=== PATIENT | female | born 1985 | race Hispanic/Latino ===

== ENCOUNTER 2019-01-29 02:38 | Inpatient (IN) ==
[2019-01-29] MEDS ORDERED: NS 1,000 ML IV ONE ×2 (03:15→05:00)
[2019-01-29] MEDS ORDERED: ZOFRAN IV ONE (03:15)
[2019-01-29] MEDS ORDERED: MORPHINE IV ONE (03:15)
--- NOTE | 2019-01-29 03:19 | PROVIDER DOCUMENTATION ---
HPI-General Adult - General Chief Complaint: Abdominal Pain Stated Complaint: N/V/D Time Seen by Provider: 01/29/19 03:13 Source: patient, family Allergies/Adverse Reactions: Patient Allergies Allergy/AdvReac Type Severity Reaction Status Date / Time No Known Allergies Allergy Verified 11/17/12 12:04 Home Medications: Home Medication List Medication Instructions Recorded Confirmed Last Taken Type NK [No Home Medications] 01/29/19 01/29/19 Unknown History - History of Present Illness -Gen Adult Nature of Presenting Problems: Pt presents with ap, x 2 weeks, epigastric to RUQ, comes and goes, worse tonight, worse after eating, associated with n/v, pt denies f/c, mcwilliams, cp, sob, cough, diarrhea, pt is lying in kelly n no acute distress. Location of Pain/Injury: reports: abdomen (ruq) Pain Radiation: reports: no radiation Quality of Pain: reports: sharp Severity: reports: moderate Onset/Duration: reports: other (2 weeks) Timing: reports: still present Context/Activities at Onset: reports: none Modifying Factors: improves with: nothing Associated Symptoms: reports: nausea, vomiting Similar Symptoms Previously?: No Recently seen or treated by another doctor?: No Review of Systems - Adult - REVIEW OF SYSTEMS - ADULT Constitutional: reports: no symptoms reported Eyes: reports: no symptoms reported Ears, Nose, Mouth & Throat: reports: no symptoms reported Cardiovascular: reports: no symptoms reported Respiratory: reports: no symptoms reported Gastrointestinal: reports: see HPI Genitourinary: reports: no symptoms reported Musculoskeletal: reports: no symptoms reported Integumentary: reports: no symptoms reported Neurological: reports: no symptoms reported Psychiatric: reports: no symptoms reported Endocrine: reports: no symptoms reported Hematologic/Lymphatic: reports: no symptoms reported Allergic/Immunologic: reports: no symptoms reported All Other Systems: Reviewed and Negative Past History - Adult - PAST MEDICAL HISTORY-ADULT Review of Records: reports: Old Records Reviewed, Nursing Assessment Review, Medications Reviewed, Social history reviewed & non-contributory. Major Childhood Illnesses: reports: denies history Cardiovascular: reports: denies history Respiratory: reports: denies history Gastrointestinal: reports: denies history Obstetrical/Gynecological: reports: denies history Genitourinary: reports: denies history Musculoskeletal: reports: denies history Neurological: reports: denies history Psychiatric: reports: denies history Endocrine/Immune: reports: denies history Other Conditions: reports: denies history Physical Exam-General - PHYSICAL EXAM-ADULT Initial Vital Signs Reviewed: Yes - CONSTITUTIONAL General Appearance: appears well - EYES Eyes: PERRL/EOMI - HEAD, EARS, NOSE, MOUTH & THROAT HENMT: normal ENT inspection - NECK Neck: normal inspection - RESPIRATORY Respiratory: lungs clear, no respiratory distress, no accessory muscle use - CARDIOVASCULAR Cardiovascular: regular rate, rhythm - GASTROINTESTINAL (ABDOMEN) Abdominal Exam: soft, no organomegaly, tenderness (ruq). negative: distended, guarding - LYMPHATIC Lymphatic: no adenopathy - MUSCULOSKELETAL Back Exam: normal inspection Extremity: normal range of motion - SKIN Integumentary: normal color - NEUROLOGIC Neurologic: grossly normal - PSYCHIATRIC Psych/Mental Status: normal mood/affect Progress - PLAN OF CARE/RESULTS Progress/Plan/Lab Results: Vital Signs - 8 hr 01/29/19 02:42 Temperature 98.1 F Pulse Rate 82 Respiratory Rate 20 Blood Pressure 141/96 O2 Sat by Pulse Oximetry 99 Orders Category Date Time Status ED: Urine Bedside ORDERED Care 01/29/19 03:15 Ordered US GB < RUQ (LIMITED) [US] Stat Exams 01/29/19 03:13 Ordered CBC WITH ELECTRONIC DIFF [HEME] Stat Lab 01/29/19 03:13 Uncollected COMPREHENSIVE METABOLIC PANEL [CHEM] Stat Lab 01/29/19 03:13 Uncollected LIPASE [CHEM] Stat Lab 01/29/19 03:[address] [URINALYSIS] Stat Lab 01/29/19 03:13 Uncollected Morphine Med 01/29/19 03:15 Once 4 mg IV NOW ONE Ns 1000 ml IV Bolus X1 Med 01/29/19 03:15 Ordered 0.9% Sodium Chloride Inj [Ns] 1,000 ml IV 999 mls/hr Ondansetron [Zofran] Med 01/29/19 03:15 Once 4 mg IV NOW ONE Result Diagrams: 01/29/19 03:30 01/29/19 03:30 Departure - Departure Date of Disposition Decision: 01/29/19 Time of Disposition Decision: 05:00 DIAGNOSIS: Acute gallstone pancreatitis Disposition: ADMITTED INPATIENT 09 Certified Medical Emergency: Emergent Condition: Stable Referrals and Follow-Ups: None,PCP [Primary Care Provider] - - Critical Care Note This patient required my direct & personal management of CC.: No Attestation - Physician/ SANAM Attestation Patient care was provided by Advanced Practice Provider:: No The physician spent face to face time with patient:: Yes Advanced Practice Provider documentation review:: Supervising physician onsite and consulted in the evaluation and care of this patient. The physician did have a face to face encounter with the patient.
[2019-01-29 04:16] LABS: URINE SOURCE CLEAN CATCH
[2019-01-29 04:19] LABS: BILIRUBIN URINE NEGATIVE (NEGATIVE); BLOOD URINE NEGATIVE (NEGATIVE); CLARITY SL. CLOUDY (CLEAR); COLOR YELLOW; GLUCOSE URINE NEGATIVE (NEGATIVE); KETONE URINE TRACE mg/dL (NEGATIVE); LEUKOCYTES URINE TRACE (NEGATIVE); NITRITE URINE NEGATIVE (NEGATIVE); PROTEIN URINE TRACE mg/dL (NEGATIVE); SP GRAVITY URINE 1.005; URINE BACTERIA 1+ /HFP; URINE EPITHELIAL CELLS <10 /HPF (<10); URINE RBC <10 /HPF (<10); URINE WBC <10 /HPF (<10); UROBILINOGEN URINE 1 mg/dL
[2019-01-29 04:24] LABS: BASO# 0.05 X1000 (0.0-0.2); BASO% 0.3 % (0.0-0.8); EOS# 0.01 X1000 (0.0-0.7); EOS% 0.1 % (0.0-10.0); HEMATOCRIT 40.7 % (37.0-47.0); HEMOGLOBIN 14.4 g/dL (12.0-16.0); IMM GRAN# 0.05 X1000 (0.0-0.04); IMM GRAN% 0.3 % (0.0-0.5); MCH 29.1 PG (27-31); MCHC 35.4 g/dL (33-37); MCV 82.2 FL (81-99); MONO% 4.7 % (1.7-9.3); MPV 10.2 FL (7.4-10.4); NEUT# 12.64 X1000 (1.4-6.5); NEUT% 84.6 % (42.2-75.2); PLT 325 X1000 (130-400); RBC 4.95 XMIL (4.2-5.4); RDW 13.4 % (11.5-14.5); WBC 14.95 X1000 (4.8-10.8)
[2019-01-29 04:41] LABS: AGAP 13; ALBUMIN 4.1 g/dL (3.5-5.0); ALKALINE PHOSPHATASE 314 U/L (32-104); BUN 7 mg/dL (8-22); CALCIUM 8.8 mg/dL (8.8-10.2); CHLORIDE 99 mmol/L (98-107); COSMO 279; CREATININE 0.4 mg/dL (0.5-0.9); ESTIMATED GFR > 60; GLUCOSE 165 mg/dL (70-104); GOT 234 U/L (10-30); GPT 125 U/L (10-36); LIPASE 2543 U/L (13-60); POTASSIUM 3.5 mmol/L (3.5-5.1); SODIUM 139 mmol/L (136-145); TCO2 27 mmol/L (25-35); TOTAL PROTEIN 7.5 g/dL (6.3-8.3)
[2019-01-29] MEDS ORDERED: DILAUDID IV ONE (05:06)
[2019-01-29] MEDS: MORPHINE IV PRN ×2 (06:28→08:36)
[2019-01-29] MEDS: ZOFRAN IV PRN ×2 (06:29→22:08)
--- NOTE | 2019-01-29 07:58 | Diag Imaging Result Doc PS360 ---
US GB < RUQ (LIMITED) - 01/29/2019 INDICATION: eval for gallstones, RUQ pain TECHNIQUE: COMPARISON: None FINDINGS: There are several shadowing gallstones in the gallbladder. No gallbladder distention or inflammation. Gallbladder wall measures 2 mm. Common bile duct is borderline in size. The duct measures 7 mm. The liver, pancreas, and right kidney are normal. Aorta, IVC, and main portal vein are patent. IMPRESSION: 1. Several stones in the gallbladder. No evidence of cholecystitis. 2. Slightly enlarged common bile duct. Electronically signed by Travis Bose 01/29/2019 7:56 AM
[2019-01-29] MEDS: DILAUDID IV PRN ×5 (10:16→22:08)
[2019-01-29] MEDS: LR 1,000 ML IV ONE ×2 (10:20→10:22)
[2019-01-29] MEDS: LR 1,000 ML IV SCH ×2 (11:38→17:41)
[2019-01-29] MEDS: ZOSYN 3.375 GM in NS 50 ML IV SCH ×4 (11:40→23:51)
--- NOTE | 2019-01-29 14:27 | HISTORY AND PHYSICAL ---
CHIEF COMPLAINT: Nausea, vomiting, diarrhea, abdominal pain. HISTORY OF PRESENT ILLNESS: This is a 33-year-old female who comes to the ER complaining of 2 weeks of epigastric to right upper quadrant pain that has been waxing and waning. She states it follows any food intake. During this two weeks the pain has started within 30 minutes or an hour after eating, but it will spontaneously resolve. Over the last two days the pain has not resolved and it became excruciating. Therefore, she presented to the ER for evaluation. She describes this as a sharp stabbing pain that starts epigastric and radiates over to her right upper quadrant. She has had intermittent nausea and vomiting also during these two weeks. She denies any prior episodes prior to two weeks ago. She takes no medications. She does drink alcohol, but she states her last drink was 3 or 4 months ago and that she drinks on special occasions socially. PAST MEDICAL HISTORY: Denies. PAST SURGICAL HISTORY: . SOCIAL HISTORY: She denies any tobacco or illicit drug use. She does drink alcohol on social occasions with her last drink being 4 months ago. REVIEW OF SYSTEMS: Discussed with patient with pertinent positives stated in the HPI. She denied any syncope, dizziness, any chest pain or palpitations, shortness of breath, cough, any fevers or chills, any night sweats, recent weight loss or weight gain, black or bloody vomitus or stools, any hematuria, dysuria, frequency, urgency. ALLERGIES: No known drug allergies. HOME MEDICATIONS: None. PHYSICAL EXAMINATION: GENERAL: This is a 33-year-old female who is lying in the bed in mild distress. VITAL SIGNS: Blood pressure 104/86 with a heart rate of 73, respirations are 20, temperature is 97.7 oral with room air sats being 100%. EYES: Pupils equal, round, react to light. EOMs are intact. Sclerae are anicteric. HEENT: Head is normocephalic, atraumatic. Mucous membranes are dry. NECK: Supple, with trachea midline. CARDIOVASCULAR: Regular rate and rhythm. S1 and S2 are appreciated. She has no lower extremity edema. Calves are nontender bilateral with peripheral pulses palpable x 4 extremities. PULMONARY: Breath sounds are clear with no increased work of breathing noted. Chest rises and falls, symmetric respiration. Chest wall is nontender to palpation. GASTROINTESTINAL: Abdomen is soft with generalized tenderness, specifically in epigastric and bilateral upper quadrants. She is nondistended with bowel sounds in all 4 quadrants. NEUROLOGIC: She is alert oriented x 3. SKIN: Warm and dry. LABORATORY: WBC is 14.9 with hemoglobin 14.4, hematocrit 40.7 and platelets 325,000. Sodium is 139, potassium 3.5, BUN 7, creatinine 0.4, with a glucose of 165. Total bilirubin is 1 with AST being 234, ALT 125 and alkaline phosphatase being 314. Amylase is 1340, lipase is 2543. Urinalysis is essentially negative. Abdominal ultrasound revealed several stones in the gallbladder. No evidence of cholecystitis. Slightly enlarged common bile duct. ASSESSMENT AND PLAN: 1. Acute gallstone pancreatitis. 2. Leukocytosis. 3. Nausea, vomiting, diarrhea. 4. Abdominal pain. PLAN: The patient will remain n.p.o. Will continue with IV hydration giving IV Dilaudid for pain and Zofran for nausea. We will check triglycerides. We will repeat a CBC, CMP, amylase and lipase in the morning. We will continue Zosyn for antibiotic coverage. Further treatments pending hospital course. Dictated by MARYSE De La Vega for Shelton Samano MD cc: MARYSE De La Vega MD
--- NOTE | 2019-01-29 14:28 | HISTORY AND PHYSICAL ---
ADDENDUM: Patient seen and examined by myself. Full note dictated and discussed with nurse practitioner. Patient presented to the hospital with abdominal pain, nausea, vomiting and subsequently diagnosed with pancreatitis. We will admit her to the hospital, keep her n.p.o. and follow. cc: Shelton Samano MD
[2019-01-30] MEDS: DILAUDID IV PRN ×7 (00:43→22:18)
[2019-01-30] MEDS: LR 1,000 ML IV SCH ×4 (00:43→22:04)
[2019-01-30] MEDS: ZOFRAN IV PRN (00:43)
[2019-01-30] MEDS: ZOSYN 3.375 GM in NS 50 ML IV SCH ×4 (05:13→23:45)
[2019-01-30 06:40] LABS: BASO# 0.03 X1000 (0.0-0.2); BASO% 0.1 % (0.0-0.8); HEMATOCRIT 41.5 % (37.0-47.0); HEMOGLOBIN 14.1 g/dL (12.0-16.0); IMM GRAN# 0.06 X1000 (0.0-0.04); IMM GRAN% 0.3 % (0.0-0.5); LYMPH# 1.52 X1000 (1.2-3.4); LYMPH% 7.1 % (20.5-51.1); MCH 28.1 PG (27-31); MCV 82.7 FL (81-99); MONO# 1.21 X1000 (0.11-0.59); MONO% 5.7 % (1.7-9.3); MPV 9.6 FL (7.4-10.4); NEUT# 18.45 X1000 (1.4-6.5); NEUT% 86.8 % (42.2-75.2); PLT 312 X1000 (130-400); RBC 5.02 XMIL (4.2-5.4); RDW 13.6 % (11.5-14.5); WBC 21.27 X1000 (4.8-10.8)
[2019-01-30 06:50] LABS: AGAP 12; ALBUMIN 3.5 g/dL (3.5-5.0); ALKALINE PHOSPHATASE 218 U/L (32-104); AMYLASE 478 U/L (20-200); BUN 4 mg/dL (8-22); CALCIUM 8.6 mg/dL (8.8-10.2); CHLORIDE 100 mmol/L (98-107); COSMO 269; CREATININE 0.3 mg/dL (0.5-0.9); ESTIMATED GFR > 60; GLUCOSE 107 mg/dL (70-104); GOT 28 U/L (10-30); GPT 71 U/L (10-36); LIPASE 511 U/L (13-60); POTASSIUM 3.8 mmol/L (3.5-5.1); SODIUM 136 mmol/L (136-145); TCO2 24 mmol/L (25-35); TOTAL PROTEIN 6.8 g/dL (6.3-8.3)
[2019-01-30 08:00] LABS: LYMPHS 8 % (21-51); MONO 4 % (1-9); SEGS 88 % (42-75)
--- NOTE | 2019-01-30 11:36 | Diag Imaging Result Doc PS360 ---
EXAM: CT ABDOMEN/PELVIS W/WO CONTRAS HISTORY: pancreatitis TECHNIQUE: CT abdomen and pelvis with and without intravenous contrast. COMPARISON: None. FINDINGS: Noncontrasted images: There are tiny bilateral pleural effusions. There are basilar infiltrates. Sludge and small stones are in the gallbladder. No renal stones. No hydronephrosis. Normal aorta. Post contrasted images: There is prominent inflammation about the pancreas. No pancreatic mass or calcifications. There is a tiny amount of fluid about the liver and spleen with fluid in the paracolic gutters and a moderate amount in the pelvis. Normal spleen, adrenal glands, and kidneys. There is mild fatty infiltration of the liver. No bowel obstruction. Normal appendix. No abscess. Normal uterus. The urinary bladder is moderately distended and is normal. Neither ovary is enlarged. There are scattered colonic diverticula. IMPRESSION: 1.Small basilar infiltrates and atelectasis with tiny effusions 2.Pancreatitis 3.Cholelithiasis 4.Mild fatty infiltration of the liver 5.Small amount of ascites 6.Colonic diverticulosis This exam was performed using automated exposure control, adjustment of mA or kV according to patient size, and/or use of iterative reconstruction technique. Electronically signed by Brien Barreto 01/30/2019 11:34 AM
--- NOTE | 2019-01-30 11:44 | PROGRESS NOTE ---
DATE: 01/30/2019 SUBJECTIVE: Patient reports still complaining of abdominal pain but is getting better. Denies any fever or chills. Patient reports feeling very hungry and she wanted to try some clear liquids. OBJECTIVE: Vital Signs: Temperature 99.3 degrees, heart rate 84, respiratory rate 20, blood pressure 155/91, O2 saturation 94% on room air. General: This is a 33-year-old female lying in bed, in no acute distress. Cardiovascular: S1, S2 heard. No murmurs, gallops, or rubs. Regular rate and rhythm. Respiratory: Clear bilaterally to auscultation. No work of breathing or using accessory muscles. Abdomen: Soft. Tender to palpation in the epigastric area. No signs of peritoneal irritation. Extremities: No clubbing, cyanosis, or edema. Peripheral pulses present in both legs. Neurological: Patient alert and oriented x3. Moves 4 extremities. LABORATORY DATA: White cell count is 21.27, hemoglobin 14.1, hematocrit 41.5, platelets 312,000 with normal BMP. AST is back to normal. ALT 71, alkaline phosphatase 218, lipases 511. ASSESSMENT AND PLAN: 1. Acute gallstone pancreatitis. Considering her elevated white cell count, I think we need to order a CT of the abdomen and pelvis to look for any infected pancreatitis versus pseudocyst. The patient denies any previous episodes of pancreatitis. In any case, we will continue with IV fluids. We will continue with IV pain medications and will start a clear liquid diet and see how this patient does. For this gallstone pancreatitis, we are going to consult Dr. Green from General Surgery and will go from there. 2. Leukocytosis. That could be reactive versus an infected pancreatitis. That is why we are ordering a CT scan. Will continue to monitor this patient closely. cc: Brian Crabtree MD MTDD
[2019-01-30] MEDS: TYLENOL PO PRN (15:46)
[2019-01-30] MEDS: LOPRESSOR PO SCH ×2 (15:46→22:04)
--- NOTE | 2019-01-30 17:53 | CONSULTATION ---
DATE OF CONSULTATION: 01/30/2019 HISTORY OF PRESENT ILLNESS: Ms. Velez is a Citizen Of [place] female who was admitted to [facility] yesterday patient liaison with epigastric abdominal pain. An abdominal ultrasound documented gallstones and also her lipase was elevated. It was felt that she had gallstone pancreatitis and she was admitted. She got a CT scan today because of an elevated white blood cell count which showed pancreatitis and gallstones. We were asked to evaluate her. PAST MEDICAL HISTORY: . MEDICATIONS: None. ALLERGIES: None. SOCIAL HISTORY: She does not drink. She does not speak Italian. REVIEW OF SYSTEMS: Difficult to go through but seems to be negative except for the history of present illness. PHYSICAL EXAMINATION: General: On exam, Ms. Velez appears healthy but she is overweight, young Citizen Of [place] female. She is in no acute distress. Skin: She has no jaundice. HEENT: No oral lesions. Lymphatic: No cervical or supraclavicular lymphadenopathy. Heart: Regular rate. Lungs: Clear to auscultation and percussion bilaterally. Abdomen: Soft. She seems tender in the epigastrium. There is no palpable mass. No costovertebral tenderness. Rectal and vaginal: Exams were not performed. Extremities: She does have palpable peripheral pulses. No peripheral edema. Neurologic: She is alert and oriented x3 and appropriate. DIAGNOSTIC DATA: An ultrasound documents gallstones. A CT scan documents pancreatitis and gallstones. Her lipase and amylase have improved over the last 24 hours. Her lipase was 2,543 and now is 511. Amylase was 1,340 on admission and now it is 478. Her liver function tests are also coming down. Her white blood cell count is elevated at 21, hematocrit is 41%. IMPRESSION: Gallstone pancreatitis. PLAN: I agree with the current treatment of IV fluids and NPO. Actually I think they are going to start letting her have some clear liquids. We need to have her amylase and lipase return to normal and her white blood cell count improving prior to proceeding with cholecystectomy. At it is most efficient to remove her gallbladder during this hospitalization. She will have to be transferred from [place] to [facility] for her surgery. cc: Felicia Green MD
[2019-01-31] MEDS: DILAUDID IV PRN ×7 (01:20→21:20)
[2019-01-31] MEDS: TYLENOL PO PRN (01:20)
[2019-01-31] MEDS: LR 1,000 ML IV SCH ×3 (05:33→18:43)
[2019-01-31] MEDS: ZOSYN 3.375 GM in NS 50 ML IV SCH ×3 (05:34→18:42)
[2019-01-31 06:37] LABS: BASO# 0.03 X1000 (0.0-0.2); BASO% 0.1 % (0.0-0.8); EOS# 0.01 X1000 (0.0-0.7); HEMATOCRIT 38.2 % (37.0-47.0); HEMOGLOBIN 12.9 g/dL (12.0-16.0); IMM GRAN# 0.08 X1000 (0.0-0.04); IMM GRAN% 0.4 % (0.0-0.5); LYMPH# 1.32 X1000 (1.2-3.4); MCHC 33.8 g/dL (33-37); MONO# 1.18 X1000 (0.11-0.59); MONO% 5.4 % (1.7-9.3); MPV 9.5 FL (7.4-10.4); NEUT# 19.34 X1000 (1.4-6.5); NEUT% 88.1 % (42.2-75.2); PLT 251 X1000 (130-400); RDW 13.5 % (11.5-14.5); WBC 21.96 X1000 (4.8-10.8)
[2019-01-31 06:56] LABS: AGAP 10; ALKALINE PHOSPHATASE 150 U/L (32-104); BUN 4 mg/dL (8-22); CALCIUM 8.4 mg/dL (8.8-10.2); CHLORIDE 99 mmol/L (98-107); COSMO 273; CREATININE 0.3 mg/dL (0.5-0.9); ESTIMATED GFR > 60; GLUCOSE 111 mg/dL (70-104); GOT 16 U/L (10-30); GPT 37 U/L (10-36); POTASSIUM 3.6 mmol/L (3.5-5.1); SODIUM 138 mmol/L (136-145); TCO2 29 mmol/L (25-35); TOTAL PROTEIN 6.3 g/dL (6.3-8.3)
[2019-01-31 07:06] LABS: BANDS 1 % (0-1); LYMPHS 10 % (21-51); MONO 7 % (1-9); SEGS 81 % (42-75)
[2019-01-31 07:07] LABS: LARGE PLATELETS OCCASIONAL
[2019-01-31 09:22] LABS: AMYLASE 290 U/L (20-200); LIPASE 148 U/L (13-60)
[2019-01-31] MEDS: TEFLARO 600 MG in NS 250 ML IV SCH ×2 (09:31→21:20)
[2019-01-31] MEDS: LOPRESSOR PO SCH ×2 (09:39→20:27)
--- NOTE | 2019-01-31 10:52 | PROGRESS NOTE ---
DATE: 01/31/2019 SUBJECTIVE: The patient reports still complaining of abdominal pain, but better in comparing with yesterday. She reports that after eating clear liquids, she feels fine. No nausea or vomiting. She reports coughing for the last few days, and according to her, she had fever yesterday. OBJECTIVE: Vital Signs: Temperature 99.7 degrees, and today at 12:41, it was 100.7, heart rate 94, respiratory rate 18, blood pressure 155/95, O2 saturation 95% on 2 L nasal cannula. General: This is a 33-year-old, female, lying in bed in no acute distress. Cardiovascular: S1, S2 heard. No murmurs, gallops, or rubs. Regular rate and rhythm. Respiratory: Clear bilaterally to auscultation. There are some minimal coarse breath sounds in the right base. The patient is not using any accessory muscles or having work of breathing. Abdomen: Soft. Mild tenderness to palpation in the epigastric area. No signs of peritoneal irritation. Extremities: No clubbing, cyanosis, or edema. Peripheral pulses present in both legs. Neurological: The patient is alert and oriented x3. Moves all 4 extremities. LABORATORY DATA: White cell count 21.96, hemoglobin 10.9, hematocrit 38.2, platelets 251,000. Normal BMP with glucose 111. Alkaline phosphatase 150. Amylase 290, lipase 148. ASSESSMENT AND PLAN: 1. Acute gallstone pancreatitis. Clinically, this patient is stable. Pain is under control. At this point, we are going to continue the same management. Dr. Grene from General Surgery has evaluated this patient, and recommended transfer to [facility] in anticipation for a cholecystectomy. Will follow his recommendations. Will continue with intravenous fluids, but we are going to decrease from 150 to 75 mL per hour considering that she is able to tolerate a clear liquid diet. 2. Leukocytosis. The abdomen CT shows some possible bilateral infiltrates. The patient has been on Zosyn since admission. I am going to add Teflaro to her current treatment for covering any possible pneumonia. Will continue to monitor this patient closely, and check CBC daily. 3. Disposition. The patient is being transferred to [facility] for further surgical care. cc: Brian Crabtree MD
--- NOTE | 2019-01-31 11:20 | Diag Imaging Result Doc PS360 ---
EXAM: CHEST-2 VIEWS INDICATION: pna TECHNIQUE: 2 views COMPARISON: None. FINDINGS: There is bibasilar atelectasis and/or infiltrate that was also seen on a recent CT of the abdomen and pelvis. There are trace bilateral pleural effusions that can be seen layering posteriorly on the lateral view. The lungs are grossly clear, otherwise. There is no evidence of pneumothorax. The cardiomediastinal silhouette and central vasculature are grossly unremarkable. IMPRESSION: Trace bilateral pleural effusions with adjacent mild atelectasis and/or infiltrate. Electronically signed by Hector Montiel 01/31/2019 11:18 AM
[2019-02-01] MEDS: LR 1,000 ML IV SCH ×2 (00:09→14:50)
[2019-02-01] MEDS: DILAUDID IV PRN ×7 (00:30→21:02)
[2019-02-01] MEDS: ZOSYN 3.375 GM in NS 50 ML IV SCH ×4 (03:02→20:12)
[2019-02-01] MEDS: TYLENOL PO PRN ×3 (06:11→20:17)
[2019-02-01 07:35] LABS: BASO# 0.02 X1000 (0.0-0.2); BASO% 0.1 % (0.0-0.8); EOS# 0.04 X1000 (0.0-0.7); EOS% 0.2 % (0.0-10.0); HEMATOCRIT 36.6 % (37.0-47.0); HEMOGLOBIN 12.5 g/dL (12.0-16.0); IMM GRAN# 0.05 X1000 (0.0-0.04); IMM GRAN% 0.3 % (0.0-0.5); LYMPH# 1.58 X1000 (1.2-3.4); LYMPH% 9.3 % (20.5-51.1); MCH 28.7 PG (27-31); MCHC 34.2 g/dL (33-37); MCV 83.9 FL (81-99); MONO# 0.97 X1000 (0.11-0.59); MONO% 5.7 % (1.7-9.3); MPV 9.9 FL (7.4-10.4); NEUT# 14.34 X1000 (1.4-6.5); NEUT% 84.4 % (42.2-75.2); PLT 265 X1000 (130-400); RBC 4.36 XMIL (4.2-5.4); RDW 13.4 % (11.5-14.5)
[2019-02-01 07:50] LABS: AMYLASE 97 U/L (20-200); LIPASE 53 U/L (13-60)
[2019-02-01 07:55] LABS: AGAP 10; ALB/GLOB RATIO 0.9; ALBUMIN 2.9 g/dL (3.5-5.0); ALKALINE PHOSPHATASE 141 U/L (32-104); BUN 5 mg/dL (8-22); CALCIUM 8.2 mg/dL (8.8-10.2); CHLORIDE 98 mmol/L (98-107); COSMO 271; CREATININE 0.4 mg/dL (0.5-0.9); ESTIMATED GFR > 60; GLUCOSE 89 mg/dL (70-104); GOT 9 U/L (10-30); GPT 25 U/L (10-36); POTASSIUM 3.2 mmol/L (3.5-5.1); SODIUM 137 mmol/L (136-145); TCO2 29 mmol/L (25-35); TOTAL PROTEIN 6.1 g/dL (6.3-8.3)
[2019-02-01] MEDS: LOPRESSOR PO SCH ×2 (08:39→20:17)
[2019-02-01] MEDS ORDERED: SODIUM CHLORIDE 0.9% ONE (08:54)
[2019-02-01] MEDS ORDERED: SENSORCAINE 0.5%-EPI 1:200,000 ONE (08:54)
[2019-02-01] MEDS ORDERED: LR 1,000 ML ONE (08:55)
[2019-02-01] MEDS ORDERED: ZOFRAN IV PRN (09:19)
[2019-02-01] MEDS: TEFLARO 600 MG in NS 250 ML IV SCH ×2 (09:46→21:12)
[2019-02-01] MEDS ORDERED: XYLOCAINE-MPF 2% ONE (11:04)
[2019-02-01] MEDS ORDERED: QUELICIN (DOSE) ONE (11:05)
[2019-02-01] MEDS ORDERED: DIPRIVAN 1% ONE (11:06)
[2019-02-01] MEDS ORDERED: ZEMURON ONE (11:57)
[2019-02-01] MEDS ORDERED: FENTANYL ONE (12:13)
--- NOTE | 2019-02-01 13:21 | Diag Imaging Result Doc PS360 ---
EXAM: OPERATIVE CHOLANGIOGRAM INDICATION: GALLBLADDER DX TECHNIQUE: COMPARISON: None. FINDINGS: A single spot fluoroscopic image of the opacified common bile duct was provided, which was performed intraoperatively during cholecystectomy by Dr. Curtis Green. The common bile duct appears normal in caliber. There is what appears to be a filling defect at the distal common bile duct. A stone or sludge in the distal common bile duct cannot be excluded. However, it does not appear to be occlusive as there is contrast that is entering the small bowel. Please correlate with live fluoroscopic imaging. IMPRESSION: As above. Please correlate with live fluoroscopic imaging. Electronically signed by Hector Montiel 02/01/2019 1:19 PM
--- NOTE | 2019-02-01 17:31 | OPERATIVE NOTE ---
PROCEDURE DATE: 02/01/2019 PREOPERATIVE DIAGNOSIS: Gallstone pancreatitis. POSTOPERATIVE DIAGNOSIS: Acute cholecystitis with cholelithiasis and choledocholithiasis. PRINCIPAL PROCEDURE: Laparoscopic cholecystectomy with intraoperative cholangiogram. SURGEON: Felicia Green MD ANESTHESIA: General. ESTIMATED BLOOD LOSS: 30 mL. DRAINS: None. INDICATIONS: Ms Modesta Velez is a 33-year-old Telugu female, who initially presented to [facility] with epigastric abdominal pain and laboratory data with elevated amylase and lipase consistent with pancreatitis. An ultrasound documented gallstones. A CT scan of her abdomen and pelvis also suggested gallstones and pancreatitis. Her liver function tests and amylase and lipase have improved as she has clinically, and during this hospitalization, we felt she needed cholecystectomy. FINDINGS: The gallbladder was thickened, acutely inflamed, and had white bile within it. The cystic duct was dilated. We did do an intraoperative cholangiogram, and we felt that there were nonobstructing stones in the distal common duct. There was dye that went into the duodenum. It did not appear that the extrahepatic bile ducts were all that dilated. The liver appeared to be healthy, as did the surface of the bowel. She did have some adhesions between her omentum and the lower midline abdominal wall from previous lower midline incision. We felt we did the operation safely. No other intra-abdominal pathology was noted. DESCRIPTION OF PROCEDURE: The patient was brought to the operating room, placed supine, received general anesthesia, and was intubated. Her abdomen was prepped and draped in a sterile field. She was already on IV antibiotics. We made a small incision below the umbilicus with a #15-blade scalpel. Veress needle was introduced through this incision into the abdomen. Pneumoperitoneum was established. The Veress needle was removed and then we placed an 11 mm trocar through this incision into the abdomen. The camera was placed through this port, and the abdomen was explored for injury. There was none. Three other trocars were placed along the right costal margin under direct vision of the camera. We placed an 11 mm trocar just to the right of the midline and two 5 mm trocars in our midclavicular and anterior axillary lines. Through our most lateral port, the gallbladder was grasped and retracted superiorly along with the right lobe of the liver. Another grasper was used to grab the body of the gallbladder and the triangle of Calot was bluntly dissected. We identified the cystic artery, a clip was placed distally, 2 proximally, and it was divided using hook scissors. The cystic duct was dissected along its length. It was dilated, and we had to use a large clip telecommunications field engineer to control the cystic duct. We placed a clip distally at the cystic duct/gallbladder junction. We made a small incision in the cystic duct using hook scissors and a Taut intraoperative cholangiogram catheter was used to perform the cholangiogram with the findings above. Once the cholangiogram was completed, we placed 2 large clips proximally on the cystic duct, and we divided the cystic duct between clips using hook scissors. The spatular cautery was used to remove the gallbladder from the liver bed and then we removed the gallbladder through our umbilical incision. The gallbladder was full of small pyramidal black stones. We placed the trocar back through this incision and the area of operation was thoroughly inspected, irrigated, and the irrigation was removed with suction. There was no evidence of ongoing bleeding or bile leak. No drains were left. All trocars removed under direct vision of the camera. The pneumoperitoneum was allowed to dissipate. I used [id number] 2-0 Vicryl stitches to reapproximate the fascia at the umbilicus and all skin was closed with 4-0 Monocryl subcuticular stitches. Steri-Strips were applied. Plans are for her to go the recovery room and be readmitted to the floor. We will ask Gastroenterology to evaluate her cholangiogram. cc: Felicia Green MD
--- NOTE | 2019-02-01 19:00 | GASTROENTEROLOGY CONSULTATION ---
DATE: 02/01/2019 REASON FOR CONSULTATION: Choledocholithiasis. HISTORY OF PRESENT ILLNESS: Ms. Modesta Andujar is a 33-year-old woman with a past medical history of hypertension, obesity, who presents with severe epigastric pain radiating to her back. This started 5 days ago. She reports having pain intermittently for the last couple of weeks that was aggravated by eating and would usually resolve. On the day of presentation, her pain did not improve. It became excruciating, stabbing, radiating to her back and right upper quadrant. She was admitted and found to have gallstone pancreatitis, treated with IV fluids and empiric antibiotics with Zosyn. She underwent laparoscopic cholecystectomy today and had an intraoperative cholangiogram which found some debris, sludge, or stones in the distal common bile duct. Her LFTs have been downtrending during her hospitalization. Her abdominal pain currently is persistent, described as burning. She did have a low-grade fever on admission of 100.4. No other associated symptoms to include intermittent nausea, vomiting, fever. No change in bowel habits, rectal bleeding, or melena. She does not take any medications at home. FAMILY HISTORY: No family history of GI malignancies. PAST MEDICAL HISTORY: Hypertension, not on any medications. PAST SURGICAL HISTORY: , laparoscopic cholecystectomy today on 02/01/2019. SOCIAL HISTORY: She smokes about a pack a day. She drinks alcohol socially. No history of heavy alcohol use. No drug use. REVIEW OF SYSTEMS: As per HPI. Otherwise, 12-point review of systems is negative. HOME MEDICATIONS: None. ALLERGIES: No known drug allergies. PHYSICAL EXAMINATION: Vital Signs: Temperature is 99.7 degrees, heart rate 85, respiratory rate 18, blood pressure 140/80, O2 saturation 96% on 2 L nasal cannula. General: The patient is awake, alert, oriented. Diaphoretic. No acute distress. HEENT: Sclerae anicteric. Moist mucous membranes. Extraocular motor intact. Neck: Supple. No JVD. No lymphadenopathy. Cardiac: Regular rate and rhythm. No murmurs. Lungs: Clear to auscultation bilaterally. No wheezing. Abdomen: Nondistended. Incision stab wounds are clean, dry, and intact. Mild diffuse tenderness to palpation. No rebound or guarding. Bowel sounds are hypoactive. Extremities: No clubbing, cyanosis, or edema. Skin: Warm and well perfused. NEUROLOGIC: Nonfocal. Cranial nerves II through XII grossly intact. LABORATORIES: Her white count on admission was 14.9, currently 17.0. Hemoglobin is 12.5. Platelets 265,000. She has some elevated neutrophils, no bands. Sodium 137, potassium 3.2, chloride 98, bicarb 29, BUN of 5, creatinine 0.4, glucose 89. LFTs have improved over the last 4 days. Initially, she had some transaminases with AST of 234, ALT of 125, bilirubin of 1.0, alkaline phosphatase of 314. Those are improved and normalized except for alkaline phosphatase of 141. Total protein of 6.1, albumin of 2.9, triglycerides 86. Lipase on presentation was 2543. UA unremarkable. IMAGING: Abdominal ultrasound on 01/29 shows several stones in the gallbladder, no evidence of cholecystitis, slightly enlarged common bile duct measuring [address] of the abdomen and pelvis on 01/30 shows small bibasilar infiltrates and atelectasis with tiny effusions, pancreatitis, cholelithiasis, mild fatty liver, small amount of ascites, colonic diverticulosis. Chest x-ray on 01/31 shows trace bibasilar pleural effusions with adjacent mild atelectasis and/or infiltrate. Intraoperative cholangiogram shows normal common bile duct caliber with filling defect at the distal common bile duct. A stone or sludge in the distal common bile duct cannot be excluded. However, it does not appear to be occlusive as there is contrast entering the small bowel. ASSESSMENT AND PLAN: 1. Ms. Modesta Andujar is a 33-year-old woman with history of hypertension and obesity, who presents with acute gallstone pancreatitis, who is postoperative day 0 of laparoscopic cholecystectomy with intraoperative cholangiogram showing possible choledocholithiasis. Her vital signs are stable. She is afebrile. She has persistent leukocytosis which could be acute phase reactant. She is on Zosyn, and ceftaroline was started today for concern of possible pneumonia. Her liver function tests have been downtrending, and her alkaline phosphatase is 141 today. I suspect that she may have passed a stone, but we will monitor closely for need for ERCP. She is not on any blood thinners and has no history of alcoholism. Her labs are notable for mild hypokalemia. We will continue IV fluids and replete electrolytes as needed, pain control p.r.n., antiemetics as needed. Postoperative medication management as per Surgery Team. 2. Tobacco abuse. Continue to encourage smoking cessation. 3. Clear liquid diet as per Surgery. We will follow with you. Please call with any questions or concerns.
[2019-02-02] MEDS: DILAUDID IV PRN ×6 (01:55→21:42)
[2019-02-02] MEDS: ZOSYN 3.375 GM in NS 50 ML IV SCH ×4 (02:24→21:23)
[2019-02-02] MEDS: TYLENOL PO PRN ×2 (04:02→21:39)
[2019-02-02 07:38] LABS: BASO# 0.03 X1000 (0.0-0.2); BASO% 0.2 % (0.0-0.8); EOS# 0.04 X1000 (0.0-0.7); EOS% 0.2 % (0.0-10.0); HEMATOCRIT 33.7 % (37.0-47.0); HEMOGLOBIN 11.3 g/dL (12.0-16.0); IMM GRAN# 0.08 X1000 (0.0-0.04); IMM GRAN% 0.4 % (0.0-0.5); LYMPH% 5.7 % (20.5-51.1); MCH 28.4 PG (27-31); MCHC 33.5 g/dL (33-37); MCV 84.7 FL (81-99); MONO# 1.02 X1000 (0.11-0.59); MONO% 5.3 % (1.7-9.3); MPV 9.3 FL (7.4-10.4); NEUT# 17.14 X1000 (1.4-6.5); NEUT% 88.2 % (42.2-75.2); PLT 292 X1000 (130-400); RBC 3.98 XMIL (4.2-5.4); RDW 13.5 % (11.5-14.5); WBC 19.41 X1000 (4.8-10.8)
[2019-02-02] MEDS ORDERED: SODIUM CHLORIDE 0.9% INJ SCH (08:15)
[2019-02-02] MEDS: PEPCID IV SCH ×2 (08:22→21:28)
[2019-02-02] MEDS: LOPRESSOR PO SCH ×2 (08:23→21:38)
[2019-02-02] MEDS: LR 1,000 ML IV SCH ×2 (08:25→13:28)
[2019-02-02 08:27] LABS: AGAP 11; ALB/GLOB RATIO 0.7; ALBUMIN 2.5 g/dL (3.5-5.0); ALKALINE PHOSPHATASE 271 U/L (32-104); BUN 5 mg/dL (8-22); CALCIUM 7.9 mg/dL (8.8-10.2); CHLORIDE 98 mmol/L (98-107); COSMO 271; CREATININE 0.4 mg/dL (0.5-0.9); ESTIMATED GFR > 60; GLUCOSE 136 mg/dL (70-104); GOT 22 U/L (10-30); GPT 27 U/L (10-36); POTASSIUM 2.9 mmol/L (3.5-5.1); SODIUM 136 mmol/L (136-145); TCO2 27 mmol/L (25-35); TOTAL BILIRUBIN 0.59 mg/dL (0.20-1.00); TOTAL PROTEIN 6.1 g/dL (6.3-8.3)
[2019-02-02] MEDS: TEFLARO 600 MG in NS 250 ML IV SCH ×2 (12:07→23:48)
--- NOTE | 2019-02-02 12:50 | PROGRESS NOTE ---
DATE: 02/02/2019 SUBJECTIVE: Ms. Velez is now postop day 1 from laparoscopic cholecystectomy with intraoperative cholangiogram. She was admitted initially with gallstone pancreatitis. Over several days of hospitalization, her pancreatitis seemed to improve shown by a decrease of lipase and amylase. Yesterday we felt it was safe to take her to surgery for cholecystectomy and during the cholangiogram, we noted some stones in the distal common duct. They are not obstructing but we felt some stones did involve the common duct, and Gastroenterology has been consulted. Her gallbladder was full of small pyramidal black stones and it was acutely inflamed. The liver appeared to be healthy. No drains were left at the time of surgery and today clinically she looks improved. She is awake, seems to be comfortable except at her trocar sites where she has some pain. Her abdomen is mostly soft. She is on clear liquids. VITAL SIGNS: Her heart rate is 75, blood pressure 133/77, O2 saturation 98%. T-max is 99 degrees. LABORATORY DATA: She is on IV antibiotics. Her white blood cell count is 19, hematocrit is 34%. BUN and creatinine are 5 and 0.4. Her potassium was low this morning at 2.9. Her liver function tests are within normal limits despite her cholangiogram. PLAN: I agree with advancing diet as long as clinically her pancreatitis allows that to be done. Consideration of ERCP GI Medicine. cc: Felicia Green MD
--- NOTE | 2019-02-02 14:02 | GASTROENTEROLOGY PROGRESS NOTE ---
DATE: 02/02/2019 SUBJECTIVE: Patient currently lying in bed. She is a Telugu speaker. We discussed the need for doing ERCP as the patient continues to have elevated white count. Her liver enzymes have started to come down, but alkaline phosphatase is still elevated at 271. OBJECTIVE: Vitals: Temperature 99 degrees, pulse rate of 75, respiratory rate of 18, blood pressure 132/77, saturating 98% on nasal cannula. Weight: Body weight of 196 pounds. BMI 33.30 3.6 kg/m2. General: Patient is moderately nourished, lying in bed, in no acute distress. HEENT: No pallor. No icterus. Neck: Supple. Abdomen: Discomfort in the right upper quadrant. No rebound. Extremities: No cyanosis, clubbing. Neurological: Alert, awake, oriented to time, place. LABORATORIES: Hemoglobin 11.3, hematocrit 33.7, white count of 19.4, platelet count of 292,000. Sodium 136, potassium 2.9, chloride 98, bicarbonate 27, anion gap 11, BUN of 5, creatinine 0.4, glucose of 136, calcium 7.9, total bilirubin is 0.59, AST 22, ALT 27, alkaline phosphatase 271, total protein is 6.2, albumin of 2.5. Her alkaline phosphatase is going up. White count is going up. IMPRESSION AND PLAN: 1. Choledocholithiasis, elevated white count, and elevated alkaline phosphatase. We will schedule her for ERCP tomorrow with Dr. Islas. The risks, benefits, indications, and alternatives were discussed with the patient in presence of Dr. Cantu, and all questions were answered. The patient acknowledges understanding and agreed to proceed with above. 2. Tobacco abuse. Patient counseled to quit smoking. 3. We will keep her on clear liquid diet for now and n.p.o. past midnight. We will start her on gastrointestinal prophylaxis with Pepcid 20 mg IV b.i.d. 4. She will continue intravenous antibiotics for now. 5. We will continue pain control with intravenous Dilaudid as needed. Further recommendations are pending hospital course. cc: MD Levi Davis MD Lynn R. Buckner, MD
--- NOTE | 2019-02-02 14:14 | PROGRESS NOTE ---
DATE: 02/01/2019 SUBJECTIVE: She has no primary care physician. Came in with nausea, vomiting, diarrhea, and abdominal pain. This is a 33-year-old who came into the emergency room complaining of 2 weeks of epigastric, right upper quadrant pain that has been waxing waning. States that it seems to follow any food intake during the last couple weeks. Started within 30 minutes or an hour after eating, but spontaneously would resolve. Over the last couple of days the pain has not resolved, became excruciating, presented to the emergency room for evaluation. She describes a sharp, stabbing epigastric pain, radiates to her right upper quadrant. Has had intermittent nausea and vomiting during these 2 weeks. Denies any prior episodes before 2 weeks ago. Ultrasound showed several stones in the gallbladder. No evidence of cholecystitis but pancreatic enzymes elevated, so acute gallstone pancreatitis is suspected with leukocytosis. Her pain had diminished some. PAST MEDICAL HISTORY: None. PAST SURGICAL HISTORY: She has had a . OBJECTIVE: Vital signs: Temp was a 100.0 degrees, pulse 87, respirations 18, blood pressure 134/70. HEENT: Pupils are equal and round. Lungs: Clear in all lung denny. Cardiovascular: Regular rhythm and rate without murmur or S3. Abdomen: Soft. Skin: Warm and dry. ASSESSMENT AND PLAN: Acute pancreatitis, suspect gallstone pancreatitis, leukocytosis appreciated. Calcium level slightly low. Potassium was 3.8 on arrival. Given her quite a bit of fluids. Amylase 478, lipase 511. We will continue IV fluids. Surgery has been consulted. Have her on ceftaroline 600 mg IV q.12, Pepcid 20 mg IV q.12, getting Dilaudid 0.5 mg q.4 hours p.r.n. pain, lactated Ringer's at 75 mL an hour, Lopressor 25 mg b.i.d., Zosyn 3.375 g IV q.6 hours. cc: Abhishek Posadas MD
--- NOTE | 2019-02-02 17:41 | PROGRESS NOTE ---
DATE: 02/02/2019 SUBJECTIVE: Underwent laparoscopic cholecystectomy, doing well. Pain is much improved. Remains afebrile. OBJECTIVE: Low-grade temperature 99 degrees, pulse 75, respirations 18, blood pressure 133/77. Pupils are equal and round. Lungs are clear in all lung denny. Cardiovascular: Regular rhythm and rate without murmur or S3. ASSESSMENT AND PLAN: 1. Acute gallstone pancreatitis with leukocytosis and calcium level slightly low. Status post laparoscopic cholecystectomy. Dr. Delgado was involved. Follow. Suspect she may have passed a stone. Monitor closely for need for ERCP. She is not on any blood thinners. 2. Tobacco abuse. REVIEW OF HER ORDERS: I do not see any change. Continue present antibiotic, which is ceftaroline 600 mg IV q.12 h. She is on lactated Ringer's at 75 mL an hour and getting Zosyn 3.375 g IV q.6 h. She has Zofran for nausea. She is on metoprolol 25 mg b.i.d. cc: Abhishek Posadas MD
[2019-02-03] MEDS: ZOSYN 3.375 GM in NS 50 ML IV SCH ×4 (03:50→22:30)
[2019-02-03] MEDS: DILAUDID IV PRN ×5 (03:50→22:26)
[2019-02-03] MEDS: LR 1,000 ML IV SCH ×2 (03:51→15:17)
[2019-02-03] MEDS: PEPCID IV SCH ×2 (08:28→22:32)
[2019-02-03] MEDS ORDERED: DIPRIVAN 1% ONE ×2 (10:15→10:17)
[2019-02-03] MEDS ORDERED: FENTANYL ONE (10:36)
--- NOTE | 2019-02-03 11:13 | Diag Imaging Result Doc PS360 ---
EXAM: ERCP-BILIARY AND PANCREATIC 02/03/2019 HISTORY: CBD stones, leukocytosis TECHNIQUE: Four views, 68.6 mGy, two minutes 40 seconds fluoroscopy time. COMMENT: There is no evidence of retained stones. There is evidently passage of a guidewire and possibly a stone basket. IMPRESSION: No evidence of retained stones. Electronically signed by Uriel Arreguin 02/03/2019 11:11 AM
[2019-02-03] MEDS: TEFLARO 600 MG in NS 250 ML IV SCH (11:44)
--- NOTE | 2019-02-03 13:06 | PROGRESS NOTE ---
DATE: 02/03/2019 SUBJECTIVE: Ms. Velez is now postop day 2 from a laparoscopic cholecystectomy with intraoperative cholangiogram. She was admitted with gallstone pancreatitis. We felt she had some retained distal common bile duct stones. They were nonobstructive. Dr. Islas performed an ERCP today, and she is on clear liquids. OBJECTIVE: General: Her abdomen is mostly soft. She is still sleepy, probably from her procedure today. Vital Signs:: Her heart rate is 69, blood pressure 127/78, O2 saturation 96%. She is afebrile. She is on IV antibiotics prophylactically because of acute cholecystitis and to avoid cholangitis. PLAN: Hopefully she can have her diet advanced as tolerated and be discharged over the weekend. cc: Felicia Green MD
[2019-02-03] MEDS: LOPRESSOR PO SCH ×2 (15:38→22:31)
--- NOTE | 2019-02-03 16:09 | OPERATIVE NOTE ---
PROCEDURE DATE: 02/03/2019 PREOP DIAGNOSIS: Rule out common bile duct stone. POSTOP DIAGNOSIS: No evidence of stones. PROCEDURE: 1. Endoscopic retrograde cholangiopancreatography. 2. Endoscopic sphincterotomy. DESCRIPTION OF PROCEDURE: After informed consent and adequate intravenous sedation, the endoscope introduced the esophagus, stomach, and duodenum. There is free flow of bile. At this point, initially a quick pancreatogram was done accidentally which was normal. Cholangiogram did not reveal any filling defects. A wide sphincterotomy was done and multiple flushes were done. No stones found. Endoscope was withdrawn. The patient tolerated the procedure well without any immediate complications. cc: MD Felicia Abdul MD
--- NOTE | 2019-02-03 17:09 | PROGRESS NOTE ---
DATE: 02/03/2019 SUBJECTIVE: She does feel better and would like to try and go home tomorrow. OBJECTIVE: Temperature 98.7 degrees, pulse 69, respirations 16, blood pressure 127/78. Pupils are equal and round. Lungs are clear in all lung denny. Cardiovascular: Regular rhythm and rate without murmur or S3. Abdomen is soft. Skin is warm and dry. Urine output: 2600 mL. ASSESSMENT AND PLAN: Doing better. This is postoperative day 2 from laparoscopic cholecystectomy with intraoperative cholangiogram and she was admitted with gallstone pancreatitis. Enzymes look better. She feels better. Hopefully, can go home tomorrow. She had ERCP with no evidence of stones. REVIEW OF HER ORDERS: She is on ceftaroline 600 mg IV q.12 h., Pepcid 20 mg IV q.12 h., and lactated Ringer at 75 mL an hour, Zosyn 3.375 g IV q.6 h. We will check some more labs in the morning, including CBC and lipase and amylase and liver functions. Hopefully she can go home in the morning. cc: Abhishek Posadas MD
[2019-02-04] MEDS: ZOSYN 3.375 GM in NS 50 ML IV SCH ×2 (03:02→08:21)
[2019-02-04] MEDS: TEFLARO 600 MG in NS 250 ML IV SCH (03:38)
[2019-02-04] MEDS: DILAUDID IV PRN ×2 (03:38→08:17)
[2019-02-04 07:58] LABS: AGAP 12; ALB/GLOB RATIO 0.8; ALBUMIN 2.6 g/dL (3.5-5.0); ALKALINE PHOSPHATASE 248 U/L (32-104); AMYLASE 31 U/L (20-200); BUN 4 mg/dL (8-22); CALCIUM 8.4 mg/dL (8.8-10.2); CHLORIDE 99 mmol/L (98-107); COSMO 276; CREATININE 0.3 mg/dL (0.5-0.9); ESTIMATED GFR > 60; GLUCOSE 98 mg/dL (70-104); GOT 11 U/L (10-30); GPT 17 U/L (10-36); LIPASE 29 U/L (13-60); POTASSIUM 2.6 mmol/L (3.5-5.1); SODIUM 140 mmol/L (136-145); TCO2 29 mmol/L (25-35); TOTAL BILIRUBIN 0.33 mg/dL (0.20-1.00); TOTAL PROTEIN 5.9 g/dL (6.3-8.3)
[2019-02-04 08:04] LABS: BASO# 0.06 X1000 (0.0-0.2); BASO% 0.7 % (0.0-0.8); EOS# 0.21 X1000 (0.0-0.7); EOS% 2.3 % (0.0-10.0); HEMATOCRIT 31.6 % (37.0-47.0); HEMOGLOBIN 10.5 g/dL (12.0-16.0); IMM GRAN# 0.03 X1000 (0.0-0.04); IMM GRAN% 0.3 % (0.0-0.5); LYMPH# 2.25 X1000 (1.2-3.4); LYMPH% 24.8 % (20.5-51.1); MCH 28.2 PG (27-31); MCHC 33.2 g/dL (33-37); MCV 84.7 FL (81-99); MONO# 0.59 X1000 (0.11-0.59); MONO% 6.5 % (1.7-9.3); MPV 9.5 FL (7.4-10.4); NEUT# 5.95 X1000 (1.4-6.5); NEUT% 65.4 % (42.2-75.2); PLT 304 X1000 (130-400); RBC 3.73 XMIL (4.2-5.4); RDW 13.1 % (11.5-14.5); WBC 9.09 X1000 (4.8-10.8)
[2019-02-04 08:12] VITALS: BP 143/77
[2019-02-04] MEDS: PEPCID IV SCH (08:22)
[2019-02-04] MEDS: LOPRESSOR PO SCH (08:23)
[2019-02-04] MEDS: TYLENOL PO PRN (08:29)
[2019-02-04 08:38] LABS: BANDS 4 % (0-1); HYPOCHROM 1+; LYMPHS 24 % (21-51); MONO 2 % (1-9); SEGS 68 % (42-75)
--- NOTE | 2019-02-04 12:06 | DISCHARGE SUMMARY ---
ADMISSION DATE: 01/29/2019 DISCHARGE DATE: 02/04/2019 HISTORY AND HOSPITAL COURSE: This is a 33-year-old who presented with pain and appeared to have biliary pancreatitis. Abdominal and pelvic CT confirmed pancreatitis and lots of stones in the gallbladder. Dr. Green was consulted. She had presented to [facility] and sent over here, presented with epigastric pain. Abdominal ultrasound documented gallstones. Lipase was elevated. CT scan confirmed pancreatitis and gallstones. She had an elevated white blood cell count. Only significant past medical history was status post section, so she underwent laparoscopic cholecystectomy which she tolerated well. Dr. Haider was consulted to follow along and make sure there were no biliary stones and she had no sign of stone retention. She had an ERCP and fluoroscopy with 4 views, the conclusion was no evidence of any retained stones. The patient did well postop, advanced her diet and was wanting to go home. Plan to discharge her on 02/04/2019. DISCHARGE MEDICATIONS: Lopressor 25 mg b.i.d. Pepcid was given IV, we will stop that, and that should be her only medication. cc: Abhishek Posadas MD
--- NOTE | 2019-02-04 17:51 | PROVIDER PROGRESS NOTE ---
Progress Note SUBJECTIVE: No acute overnight events. Afebrile. Mild nausea without vomiting. Tolerating clears. +flatus. Mild abdominal pain. OBJECTIVE: Last Vital Signs Temp 97.8 F 02/04/19 08:00 Pulse 64 02/04/19 08:00 Resp 16 02/04/19 08:00 BP 143/77 02/04/19 08:00 Pulse Ox 97 02/04/19 08:00 Height 5 ft 4 in Weight 196 lb GEN: awake, alert, NAD HEENT: anicteric, MMM NECK: supple, no jvd PULM: CTAB, no wheezing CV: RRR, no murmurs ABD: ND, surgical incisions c/d/i, soft, minimal diffuse TTP, BS present, no rebound or guarding EXT: no cce NEURO: nonfocal LABS 02/04/19 02/04/19 07:04 07:04 WBC 9.09 Hgb 10.5 L Plt Count 304 Sodium 140 Potassium 2.6 L Chloride 99 Carbon Dioxide 29 BUN 4 L Creatinine 0.3 L Total Bilirubin 0.33 AST 11 ALT 17 Alkaline Phosphatase 248 H Total Protein 5.9 L Albumin 2.6 L Ms. Modesta Andujar is a 33-year-old woman with history of hypertension and obesity who presented with acute gallstone pancreatitis s/p laparoscopic cholecystectomy with intraoperative cholangiogram showing possible choledocholithiasis. ERCP with sphincterotomy on 02/03 was unrevealing for stones or sludge. # Gallstone pancreatitis: s/p lap juana; resolved # Elevated LFTs; downtrending; ALP remains elevated; recommend repeat outpatient LFTs in 1 month # Hypokalemia: replete K # Leukocytosis: resolved # Tobacco abuse: encourage smoking cessation Will sign off. Please call with questions
--- NOTE | 2019-02-04 20:08 | DISCHARGE SUMMARY ---
ADMISSION DATE: 01/29/2019 DISCHARGE DATE: 02/04/2019 ADMITTING DIAGNOSIS: Gallstone pancreatitis. DISCHARGE DIAGNOSIS: 1. Acute cholecystitis with cholelithiasis and choledocholithiasis. 2. Acute pancreatitis. PRINCIPAL PROCEDURE: 1. Laparoscopic cholecystectomy with intraoperative cholangiogram 02/01/2019. 2. ERCP per Dr. Islas on 02/03/2019. DISCHARGE DISABILITY: Full. DISCHARGE DIET: Regular. DISCHARGE DISPOSITION: She will return to our outpatient office in 1 week for followup. HOSPITAL COURSE: Ms. Velez is a 33-year-old Hebrew female who does not speak American. She initially presented to the emergency department at [facility] with abdominal pain. A CT scan of her abdomen and pelvis suggested acute pancreatitis and she was admitted to [place]. She was treated initially with IV fluids and NPO. We saw her because she had gallstones and acute pancreatitis. She was then transferred to [facility] for further surgical treatment. On 02/01/2019 she underwent a laparoscopic cholecystectomy with intraoperative cholangiogram. We felt the operation went safely but the cholangiogram suggested some stones in the distal common bile duct. Two days later she underwent an ERCP per Dr. Islas. This included the sphincterotomy but he saw no stones in the common duct. He did not leave a stent. Was felt safe to discharge her to her home under the care of her family on 02/04/2019 with followup in our outpatient offices in a week. At discharge her heart rate is 64, blood pressure 143/77, O2 saturation 97%. She is afebrile. Her white blood cell count is normal. Hematocrit is 32%. Liver function tests were essentially normal except for the alkaline phosphatase being 248. Her amylase and lipase were back to normal. cc: Felicia Green MD
== END 2019-02-04 13:34 | disposition home or self-care (01) | DRG 418 ==
LOC: P.ED 02:38 → P.MEDSURG 05:31 → SUATTDRO 05:31 → 3N 01-31 23:13
PROVIDERS: ATTEND Emergency Medicine
PROC: EN.ERCP (2019-02-03 10:32)
CPT/HCPCS: 36415; 71020; 71046; 74178; 74300; 74330; 76705; 80053; 81001; 81025; 82150; 83690; 84478; 85025; 88304; 96361; 96374; 96375; 99285; A9270; C1751; J0330; J0712; J1170; J2270; J2405; J2543; J3010; J7030; J7050; J7120; Q9966; Q9967; S0028